=== PATIENT | female | born 1965 | race American Indian/Alaskan Native ===

== ENCOUNTER 2019-01-28 12:41 | Emergency (ER) | payer OTHER ==
[2019-01-28] MEDS ORDERED: PEPCID PO ONE (12:54)
[2019-01-28] MEDS ORDERED: DELTASONE PO ONE (12:54)
[2019-01-28] MEDS ORDERED: BENADRYL PO ONE (12:54)
--- NOTE | 2019-01-28 12:55 | Event Note ---
ED Screening Note Date of service: 01/28/19 Time: 12:52 ED Screening Note: 53 y/o female comes in for being attack by bee on her right hand this morning. pain 10/10. This initial assessment/diagnostic orders/clinical plan/treatment(s) is/are subject to change based on patients health status, clinical progression and re- assessment by fellow clinical providers in the ED. Further treatment and workup at subsequent clinical providers discretion. Patient/guardian urged not to elope from the ED as their condition may be serious if not clinically assessed and managed. Initial orders include:
[2019-01-28 12:56] VITALS: BP 112/65
[2019-01-28] MEDS ORDERED: IBUPROFEN PO ONE (12:57)
--- NOTE | 2019-01-28 14:21 | Emergency Department Report ---
ED Allergic Reaction HPI - General Chief complaint: Extremity Injury, Upper Stated complaint: RT HAND SWOLLEN Time Seen by Provider: 01/28/19 13:47 Source: patient Mode of arrival: Ambulatory Limitations: No Limitations - History of Present Illness Initial Comments: This is a 53-year-old female nontoxic, well nourished in appearance, no acute signs of distress presents to the ED with c/o of right hand pain and swelling s/p that is bee sting. Patient states it is itching and redness. Patient denies any drooling, hoarseness or facial swelling. Patient denies any trauma. She denies any fever, chills, nausea, vomiting, chest pain, shortness of breath, headache, stiff neck, numbness or tingling. Patient denies any allergies or PMH. MD Complaint: allergic reaction -: This morning Exposure: other (bee) Symptoms: itching. denies: rash, facial swelling, lip swelling, difficulty swallowing, difficulty breathing, orolingual swelling, hoarseness, syncopy, dizziness, nausea, vomiting, abdominal pain Severity: mild Treatment Prior to Arrival: none Previous Allergy History: none - Related Data Previous Rx's Medication Instructions Recorded Last Taken Type Prednisone [predniSONE 10 mg 10 mg PO .TAPER #1 tab.ds.pk 01/28/19 Unknown Rx (6-Day Pack, 21 Tabs)] diphenhydrAMINE [Benadryl CAP] 25 mg PO QHS PRN #20 capsule 01/28/19 Unknown Rx Allergies Allergy/AdvReac Type Severity Reaction Status Date / Time No Known Allergies Allergy Unverified 01/28/19 12:42 ED Review of Systems ROS: Stated complaint: RT HAND SWOLLEN Other details as noted in HPI Constitutional: denies: chills, fever Eyes: denies: eye pain, eye discharge, vision change ENT: denies: ear pain, throat pain Respiratory: denies: cough, shortness of breath, wheezing Cardiovascular: denies: chest pain, palpitations Endocrine: no symptoms reported Gastrointestinal: denies: abdominal pain, nausea, diarrhea Genitourinary: denies: urgency, dysuria, discharge Musculoskeletal: denies: back pain, joint swelling, arthralgia Skin: denies: rash, lesions Neurological: denies: headache, weakness, paresthesias Psychiatric: denies: anxiety, depression Hematological/Lymphatic: denies: easy bleeding, easy bruising ED Past Medical Hx - Past Medical History Previous Medical History?: Yes - Surgical History Past Surgical History?: No - Social History Smoking Status: Never Smoker Substance Use Type: None - Medications Home Medications: Home Medications Medication Instructions Recorded Confirmed Last Taken Type Prednisone [predniSONE 10 mg 10 mg PO .TAPER #1 tab.ds.pk 01/28/19 Unknown Rx (6-Day Pack, 21 Tabs)] diphenhydrAMINE [Benadryl CAP] 25 mg PO QHS PRN #20 capsule 01/28/19 Unknown Rx ED Physical Exam - General Limitations: No Limitations General appearance: alert, in no apparent distress - Head Head exam: Present: atraumatic, normocephalic - ENT ENT exam: Present: normal exam, normal orophraynx, other (no angioedema. no facial swelling.) - Neck Neck exam: Present: normal inspection, full ROM. Absent: tenderness, meningismus, lymphadenopathy - Extremities Exam Extremities exam: Present: normal inspection, full ROM - Back Exam Back exam: Present: normal inspection, full ROM - Neurological Exam Neurological exam: Present: alert, oriented X3 - Psychiatric Psychiatric exam: Present: normal affect, normal mood - Skin Skin exam: Present: warm, dry, intact, normal color. Absent: rash ED Course Vital Signs 01/28/19 12:54 Temperature 98.4 F Pulse Rate 83 Respiratory 20 Rate Blood Pressure 112/65 O2 Sat by Pulse 100 Oximetry - Reevaluation(s) Reevaluation #1: 01/28/19 14:22 Patient is speaking in full sentences with no signs of distress noted. ED Medical Decision Making - Medical Decision Making This is a 53-year-old female that presents with allergic reaction. Patient is stable was examined by me. There is no facial swelling. No angioedema. There is no cellulitis. No hoarseness. Patient received Benadryl, Decadron, and Pepcid in the ED. Patient was instructed not to operate any machinery after discharge due to possible drowsiness of Benadryl. Patient stated that a family member will drive patient home after discharge. Patient is discharged with prednisone and Benadryl. Patient was referred to Follow-up with a primary care doctor in 3-5 days or if symptoms worsen and continue return to emergency room as soon as possible. At time of discharge, the patient does not seem toxic or ill in appearance. No acute signs of distress noted. Patient agrees to discharge treatment plan of care. No further questions noted by the patient. Critical care attestation.: If time is entered above; I have spent that time in minutes in the direct care of this critically ill patient, excluding procedure time. ED Disposition Clinical Impression: Allergic reaction Qualifiers: Encounter type: initial encounter Qualified Code(s): T78.40XA - Allergy, unspecified, initial encounter Disposition: TO HOME OR SELFCARE Is pt being admited?: No Does the pt Need Aspirin: No Condition: Stable Additional Instructions: Follow-up with a primary care doctor in 3-5 days or if symptoms worsen and continue return to emergency room as soon as possible. Prescriptions: diphenhydrAMINE [Benadryl CAP] 25 mg PO QHS PRN #20 capsule PRN Reason: Itching Prednisone [predniSONE 10 mg (6-Day Pack, 21 Tabs)] 10 mg PO .TAPER #1 tab.ds.pk Referrals: BOCA RATON [facility]AR[facility]GUNDERS[facility] MD PEPE [Primary Care Provider] - 3-5 Days PRIMARY MD LINDA [Referring] - 3-5 Days ANJELICA ALFRED MD [Staff Physician] - 3-5 Days [facility] [Outside] - 3-5 Days [facility] [Outside] - 3-5 Days Forms: Work/School Release Form(ED)
== END 2019-01-28 14:46 | disposition home or self-care (01) ==
LOC: ED 12:41
DX: T78.40XA Allergy, unspecified, initial encounter (principal); Y92.89 Other specified places as the place of occurrence of the external cause
CPT/HCPCS: 99282; J7512